=== PATIENT | male | born 1990 | race Caucasian/White ===

== ENCOUNTER 2017-07-15 13:39 | Emergency (ER) | payer MEDICAID ==
[2017-07-15] MEDS: DIPHTH/TET/ACEL PERTUSS (ADULT) 0.5 ML VIAL IM* (16:57)
[2017-07-15] MEDS: BACITRACIN 0.9 GM OINT TOP (16:59)
== END 2017-07-15 17:23 | disposition home or self-care (01) ==
LOC: FTE 13:39
DX: T23.232A Burn of second degree of multiple left fingers (nail), not including thumb, initial encounter (principal); E11.9 Type 2 diabetes mellitus without complications; F17.210 Nicotine dependence, cigarettes, uncomplicated; X08.8XXA Exposure to other specified smoke, fire and flames, initial encounter; Y92.9 Unspecified place or not applicable; Z23 Encounter for immunization; Z79.84 Long term (current) use of oral hypoglycemic drugs
CPT/HCPCS: 90471; 90715; 99283-25